=== PATIENT | female | born 1965 | race American Indian/Alaskan Native ===

== ENCOUNTER 2017-10-17 12:14 | Emergency (ER) | payer MEDICAID ==
[2017-10-17] MEDS ORDERED: NACL 0.9% 500 ML 500 ML IV ONE (12:38)
[2017-10-17] MEDS ORDERED: SUBLIMAZE IV ONE (13:09)
[2017-10-17] MEDS ORDERED: NACL 0.9% 1000 ML 1,000 ML IV ONE (13:09)
[2017-10-17] MEDS ORDERED: PEPCID IV ONE (13:10)
--- NOTE | 2017-10-17 13:21 | Emergency Department Report ---
HPI - General Chief Complaint: Nausea/Vomiting/Diarrhea Time Seen by Provider: 10/17/17 13:02 - HPI HPI: Room 4 The patient is a 51-year-old female presenting with a chief complaint of nausea vomiting diarrhea. The patient states yesterday she began "not feeling good" and "got sick." The patient states her symptoms include whole body aching in addition to nausea vomiting and diarrhea. Patient denies dysuria but is uncertain if she's had hematuria. The patient states her son has been sick with similar symptoms 4 days ago. Patient does admit to subjective fever but denies any unexplained weight loss. The patient currently gives her pain score a score of 10/10 Location: Gastrointestinal system, see above Duration: Constant since yesterday Quality: Pain Severity: 10/10 Modifying factors: [see above] Context: [see above] Mode of transportation: [not driving] ED Past Medical Hx - Past Medical History Previous Medical History?: Yes Hx Hypertension: Yes Hx GERD: Yes Hx Arthritis: Yes (legs, feet, hands) Hx Psychiatric Treatment: Yes (bipolar disorder with psychotic features) - Surgical History Past Surgical History?: Yes Additional Surgical History: January 2017 left ankle - Family History Family history: no significant - Social History Smoking Status: Never Smoker Substance Use Type: None (denies illicit drug use) - Medications Home Medications: Home Medications Medication Instructions Recorded Confirmed Last Taken Type Ciprofloxacin HCl [Ciprofloxacin 500 mg PO BID #14 tablet 10/17/17 Unknown Rx TAB] Diphenoxylate HCl/Atropine 2 each PO QID PRN #20 tablet 10/17/17 Unknown Rx [Lomotil 2.5-0.025 mg Tablet] HYDROcodone/APAP 5-325 [Henning 1 - 2 each PO Q6HR PRN #14 tablet 10/17/17 Unknown Rx 5/325] Promethazine [Phenergan TAB] 25 mg PO Q6HR PRN #20 tab 10/17/17 Unknown Rx metroNIDAZOLE [Flagyl] 500 mg PO Q8HR #21 tablet 10/17/17 Unknown Rx ED Review of Systems ROS: Stated complaint: WEAK, VOMITING AND DIARRHEA, NOT FEELING WELL Other details as noted in HPI Constitutional: fever (subjective) Endocrine: denies: unexplained weight loss Gastrointestinal: abdominal pain, nausea, vomiting, diarrhea Genitourinary: denies: dysuria Musculoskeletal: myalgia Neurological: headache Physical Exam - Physical Exam Vital Signs: Vital Signs 10/17/17 12:33 Temperature 98.9 F Pulse Rate 122 H Respiratory 24 Rate Blood Pressure 97/70 O2 Sat by Pulse 100 Oximetry Physical Exam: GENERAL: The patient is well-developed well-nourished female lying on stretcher moaning appearing to be in moderate discomfort. [] HEENT: Normocephalic. Atraumatic. Extraocular motions are intact. NECK: Supple. Trachea midline CHEST/LUNGS: Clear to auscultation. There is no respiratory distress noted. HEART/CARDIOVASCULAR: Regular. There is tachycardia. There is no gallop rub or murmur. ABDOMEN: Abdomen is soft, with tenderness to palpation in the right upper quadrant, right lower quadrant and left lower quadrant. Patient has normal bowel sounds. There is no abdominal distention. SKIN: There is no rash. There is no edema. There is no diaphoresis. NEURO: The patient is awake, alert, and oriented. The patient is cooperative. The patient has normal speech MUSCULOSKELETAL: There is no evidence of acute injury. ED Course Vital Signs 10/17/17 12:33 Temperature 98.9 F Pulse Rate 122 H Respiratory 24 Rate Blood Pressure 97/70 O2 Sat by Pulse 100 Oximetry ED Medical Decision Making - Lab Data Result diagrams: 10/17/17 13:22 10/17/17 13:22 - Radiology Data Radiology results: report reviewed (CT abdomen and pelvis), image reviewed (CT abdomen and pelvis) FINAL REPORT PROCEDURE: CT ABDOMEN PELVIS W CON TECHNIQUE: Computerized axial tomography of the abdomen and pelvis was performed after the IV injection of iodinated nonionic contrast. HISTORY: diffuse abdominal pain, nausea vomiting diarrhea COMPARISON: No prior studies are available for comparison. FINDINGS: Lower Lung caicedo: Minimal dependent atelectasis. Lung bases otherwise are clear. Upper Abdomen: The liver, the gallbladder, the adrenal glands, the pancreas and the spleen are unremarkable. Kidneys, Ureters and Urinary bladder: No abnormalities are seen Retroperitoneum: Mild atherosclerotic changes visualized. No aneurysm is visualized. Nonspecific subcentimeter lymph nodes are seen in the retroperitoneum. No pathologically enlarged lymph nodes are identified. Bowel: The perales of the rectum, the sigmoid colon and portions of the descending colon appear mildly thickened. This also appears to involve the splenic flexure and distal transverse colon. The remainder of the colon is unremarkable. The appendix is not clearly visualized. There is no evidence of bowel obstruction ascites or free intraperitoneal gas. Reproductive organs: The uterus is unremarkable. Cystic changes seen in the left adnexa likely within the left ovary measuring 2.7 by 2.3 centimeters. The right adnexa is unremarkable. Other: No acute bony abnormalities are identified. IMPRESSION: Mild wall thickening seen in the rectum, sigmoid colon descending colon splenic flexure and distal transverse colon consistent with a nonspecific colitis. The remainder of the colon is unremarkable. Bowel loops otherwise are unremarkable. Nonspecific cystic change left adnexa. Consider follow-up pelvic ultrasound. Right adnexa and uterus are unremarkable. Transcribed By: DFDebbi Dictated By: MARY HOWARD MD Electronically Authenticated By: MARY HOWARD MD Signed Date/Time: 10/17/171128 DD/ 28 TD/TT: 10/17/171128 - Differential Diagnosis acute gastroenteritis, UTI, pyelonephritis Critical care attestation.: If time is entered above; I have spent that time in minutes in the direct care of this critically ill patient, excluding procedure time. ED Disposition Clinical Impression: Nausea vomiting and diarrhea, Acute abdominal pain, Hypokalemia, Acute colitis Disposition: - TO HOME OR SELFCARE Is pt being admited?: No Does the pt Need Aspirin: No Condition: Stable Instructions: Infectious Colitis (ED) Additional Instructions: Return to the emergency department immediately should you develop worsening symptoms, fever, inability to tolerate food or liquid or any other concerns. Prescriptions: Ciprofloxacin HCl [Ciprofloxacin TAB] 500 mg PO BID #14 tablet Diphenoxylate HCl/Atropine [Lomotil 2.5-0.025 mg Tablet] 2 each PO QID PRN #20 tablet PRN Reason: Diarrhea HYDROcodone/APAP 5-325 [Henning 5/325] 1 - 2 each PO Q6HR PRN #14 tablet PRN Reason: Pain metroNIDAZOLE [Flagyl] 500 mg PO Q8HR #21 tablet Promethazine [Phenergan TAB] 25 mg PO Q6HR PRN #20 tab PRN Reason: Nausea Referrals: PRIMARY CARE, [Primary Care Provider] - 3-5 Days NATHANIEL RINCON MD [Staff Physician] - 3-5 Days (Dr. Rincon is a preparer. Please follow him for further evaluation) Time of Disposition: 15:48 (d/c p meds/Kcl)
[2017-10-17 13:47] LABS: Basophils % (Auto) 0.3 % (0.0-1.8); Hematocrit 28.5 % (30.3-42.9); Hemoglobin 8.7 gm/dl (10.1-14.3); Mean Corpuscular HGB Conc 30 % (30-34); Mean Corpuscular Hemoglobin 18 pg (28-32); Mean Corpuscular Volume 60 fl (79-97); Platelet Count 226 K/mm3 (140-440); Red Blood Count 4.73 M/mm3 (3.65-5.03); Red Cell Distribution Width 19.9 % (13.2-15.2); White Blood Count 8.2 K/mm3 (4.5-11.0)
[2017-10-17 13:55] LABS: INR 1.08 (0.87-1.13)
[2017-10-17 14:04] LABS: Anion Gap 20 mmol/L; BUN/Creatinine Ratio 7; Blood Urea Nitrogen 5 mg/dL (7-17); Carbon Dioxide 24 mmol/L (22-30); Chloride 92.1 mmol/L (98-107); Sodium 133 mmol/L (137-145); Total Protein 7.1 g/dL (6.3-8.2)
[2017-10-17 14:12] LABS: Glucose 112 mg/dL (65-100)
[2017-10-17 14:29] LABS: Alanine Aminotransferase 10 units/L (7-56); Albumin 3.5 g/dL (3.9-5); Albumin/Globulin Ratio 0.9 %; Alkaline Phosphatase 86 units/L (35-129)
[2017-10-17 14:43] LABS: Potassium 2.8 mmol/L (3.6-5.0)
[2017-10-17] MEDS ORDERED: K-DUR PO ONE (14:44)
[2017-10-17] MEDS ORDERED: KCL 10MEQ/100ML 10 MEQ/100 ML BAG IV SCH (15:00)
[2017-10-17] MEDS ORDERED: KCL 20 MEQ in NACL 0.9% 250ML 250 ML IV ONE (15:30)
--- NOTE | 2017-10-17 15:31 | Cat Scan Report ---
FINAL REPORT PROCEDURE: CT ABDOMEN PELVIS W CON TECHNIQUE: Computerized axial tomography of the abdomen and pelvis was performed after the IV injection of iodinated nonionic contrast. HISTORY: diffuse abdominal pain, nausea vomiting diarrhea COMPARISON: No prior studies are available for comparison. FINDINGS: Lower Lung caicedo: Minimal dependent atelectasis. Lung bases otherwise are clear. Upper Abdomen: The liver, the gallbladder, the adrenal glands, the pancreas and the spleen are unremarkable. Kidneys, Ureters and Urinary bladder: No abnormalities are seen Retroperitoneum: Mild atherosclerotic changes visualized. No aneurysm is visualized. Nonspecific subcentimeter lymph nodes are seen in the retroperitoneum. No pathologically enlarged lymph nodes are identified. Bowel: The perales of the rectum, the sigmoid colon and portions of the descending colon appear mildly thickened. This also appears to involve the splenic flexure and distal transverse colon. The remainder of the colon is unremarkable. The appendix is not clearly visualized. There is no evidence of bowel obstruction ascites or free intraperitoneal gas. Reproductive organs: The uterus is unremarkable. Cystic changes seen in the left adnexa likely within the left ovary measuring 2.7 by 2.3 centimeters. The right adnexa is unremarkable. Other: No acute bony abnormalities are identified. IMPRESSION: Mild wall thickening seen in the rectum, sigmoid colon descending colon splenic flexure and distal transverse colon consistent with a nonspecific colitis. The remainder of the colon is unremarkable. Bowel loops otherwise are unremarkable. Nonspecific cystic change left adnexa. Consider follow-up pelvic ultrasound. Right adnexa and uterus are unremarkable.
[2017-10-17 17:50] VITALS: BP 108/63
== END 2017-10-17 18:33 | disposition home or self-care (01) ==
LOC: ED 12:14
DX: K52.9 Noninfective gastroenteritis and colitis, unspecified (principal); E87.6 Hypokalemia; R10.9 Unspecified abdominal pain; I10 Essential (primary) hypertension; M19.90 Unspecified osteoarthritis, unspecified site
CPT/HCPCS: 36415; 74177; 80053; 82140; 82805; 82962; 85025; 85610; 87040; 93005; 93010; 96361; 96365; 96366; 96375; 99284; J3010; J3480; J7030; J7040; J7050; Q9967

== ENCOUNTER 2019-01-14 08:08 | Observation (INO) | payer MEDICAID ==
[2019-01-07 10:02] LABS: Basophils % (Auto) 0.5 % (0.0-1.8); Eosinophils # (Auto) 0.3 K/mm3 (0.0-0.4); Hematocrit 31.4 % (30.3-42.9); Hemoglobin 9.6 gm/dl (10.1-14.3); Lymphocytes # (Auto) 1.6 K/mm3 (1.2-5.4); Lymphocytes % (Auto) 21.3 % (13.4-35.0); Mean Corpuscular HGB Conc 31 % (30-34); Monocytes # (Auto) 0.4 K/mm3 (0.0-0.8); Monocytes % (Auto) 5.1 % (0.0-7.3); Platelet Count 241 K/mm3 (140-440); Red Blood Count 4.59 M/mm3 (3.65-5.03); Red Cell Distribution Width 19.6 % (13.2-15.2)
[2019-01-07 10:09] LABS: Mean Corpuscular Volume 68 fl (79-97)
[2019-01-07 10:10] LABS: BUN/Creatinine Ratio 13; Blood Urea Nitrogen 8 mg/dL (7-17); Calcium 8.5 mg/dL (8.4-10.2); Hemolysis Index 8
[~2019-01-14 08:08] MED LIST: DECADRON ONE; DILAUDID ONE; DIPRIVAN 10 MG/ML IV ONE; MARCAINE 0.5% INFILTRATI ONE; XYLOCAINE 1% 20 mL ONE; XYLOCAINE MPF 2% ONE; ZEMURON IV ONE; ZOFRAN ONE
[2019-01-14] MEDS ORDERED: LACTATED RINGERS 1,000 ML IV SCH (08:27)
[2019-01-14] MEDS ORDERED: DILAUDID IV PRN ×2 (08:36→19:43)
[2019-01-14] MEDS ORDERED: ZOFRAN IV PRN (08:36)
[2019-01-14] MEDS ORDERED: SUBLIMAZE IV PRN (08:36)
[2019-01-14] MEDS ORDERED: NEOSPORIN GU IR ONE ×2 (08:55→11:29)
[2019-01-14] MEDS ORDERED: NEURONTIN PO NR (09:00)
[2019-01-14] MEDS ORDERED: VERSED IV NR (09:00)
--- NOTE | 2019-01-14 09:07 | History and Physical Report ---
History of Present Illness Date of examination: 01/14/19 Chief complaint: Symptomatic uterine fibroids History of present illness: Pt is a 53yo BF LMP 09/02/18 presents for surgical evaluation and treatment of uterine fibroids. She complains of prolonged heavy vaginal bleeding and pelvic u/s showed an enlarged uterus 10.0 x 6.3 x 6.5cm with a 3.3 x 3.0 x 2.8cm posterior fibroid. Endometrial biopsy showed a benign polyp. She is now scheduled for a Robotic Assisted Total Hysterectomy with Bilateral SalpingoOophorectomy Past History Past Medical History: hypertension, hepatitis, GERD Past Surgical History: other (Left ankle) [employer] History: fibroids, hepatitis C Family/Genetic History: cancer (brain) Social history: no significant social history, single Medications and Allergies Allergies Allergy/AdvReac Type Severity Reaction Status Date / Time morphine Allergy Rash Verified 01/06/19 14:14 sulfamethoxazole Allergy whelps Verified 01/06/19 14:14 [From Bactrim] trimethoprim [From Bactrim] Allergy whelps Verified 01/06/19 14:14 Home Medications Medication Instructions Recorded Confirmed Last Taken Type Duloxetine HCl [Cymbalta] 60 mg PO DAILY 01/06/19 01/14/19 01/14/19 05:00 History Pantoprazole Sodium 40 mg PO QAM 01/06/19 01/14/19 01/14/19 05:00 History Prazosin [Minipress] 1 mg PO DAILY 01/06/19 01/14/19 01/13/19 09:00 History hydrOXYzine pamoate [hydrOXYzine 100 mg PO DAILY 01/06/19 01/14/19 01/13/19 09:00 History Pamoate] hydroCHLOROthiazide [Hctz] 12.5 mg PO QDAY 01/06/19 01/14/19 01/13/19 09:00 History Active Meds: Active Medications Celecoxib (Celebrex) 200 mg PO PREOP NR Stop: 01/14/19 16:00 Fentanyl (Sublimaze) 50 mcg IV Q5MIN PRN PRN Reason: Pain , Severe (7-10) Stop: 01/14/19 20:00 Gabapentin (Neurontin) 300 mg PO PREOP NR Stop: 01/14/19 16:00 Hydromorphone HCl (Dilaudid) 0.5 mg IV Q10MIN PRN PRN Reason: Pain , Severe (7-10) Stop: 01/14/19 20:00 Lactated Ringer's (Lactated Ringers) 1,000 mls @ 75 mls/hr IV DIRECT DANYELLE Stop: 01/14/19 23:59 Cefazolin Sodium (Ancef/Sterile Water 2 Gm/20 Ml) 2 gm in 20 mls @ 80 mls/hr IV PREOP DANYELLE; Protocol Midazolam HCl (Versed) 2 mg IV PREOP NR Stop: 01/14/19 23:59 Ondansetron HCl (Zofran) 4 mg IV ONCE PRN PRN Reason: Nausea And Vomiting Stop: 01/14/19 16:00 Review of Systems All systems: negative - Vital Signs Vital signs: Vital Signs Temp Pulse Resp BP Pulse Ox 97.2 F L 70 100 01/07/19 09:24 01/07/19 09:24 01/07/19 09:24 01/07/19 09:24 01/07/19 09:24 Temp Pulse Resp BP Pulse Ox 97.2 F L 100 01/07/19 09:24 01/07/19 09:24 01/07/19 09:24 01/07/19 09:24 01/07/19 09:24 - Physical Exam Breasts: Positive: deferred Cardiovascular: Regular rate Lungs: Positive: Clear to auscultation Abdomen: Positive: normal appearance, soft Genitourinary (Female): Positive: normal external genitalia Uterus: Positive: enlarged Extremities: Positive: normal Results Result Diagrams: 01/07/19 09:52 01/07/19 09:52 All other labs normal. Ultrasound: report reviewed Assessment and Plan - Patient Problems (1) Uterine fibroid Onset Date: 01/14/19 Current Visit: Yes Status: Acute Qualifiers: Uterine leiomyoma location: intramural and submucous Qualified Code(s): D25.1 - Intramural leiomyoma of uterus; D25.0 - Submucous leiomyoma of uterus Plan to address problem: A: Symptomatic uterine fibroids Menorrhagia P: Admit for a Robotic Assisted Total Hysterectomy with Bilateral Salpi ngoOophorectomy (2) Menorrhagia, premenopausal Onset Date: 01/14/19 Current Visit: Yes Status: Acute
[2019-01-14] MEDS ORDERED: ANCEF/STERILE WATER 2 GM/20 ML 2 GM/20 ML SYRINGE IV SCH (10:00)
[2019-01-14] MEDS ORDERED: NACL 0.9% IR ONE (11:29)
[2019-01-14] MEDS ORDERED: BLOXIVERZ ONE (12:14)
[2019-01-14] MEDS ORDERED: ROBINUL ONE (12:14)
--- NOTE | 2019-01-14 12:24 | Operative Report ---
Operative Report Operative Report: Date of procedure: 01/14/2019 Pre-operative diagnosis: 1. Symptomatic uterine fibroids 2. Menorrhagia Post-operative diagnosis: Same Procedure name(s): 1. Robotic-Assisted Total Hysterectomy 2. Bilateral salpingo-oophorectomy Surgeon: Chace Rincon MD Security Operations Analyst: Donna Rhodes CSA Anesthesia: GERALD Block followed by general endotracheal intubation EBL: 100 mL Findings: A 12 week size multi-myomatous uterus with fallopian tubes showing evidence of previous tubal ligation bilaterally and normal ovaries bilaterally. Procedure: After the patient's first correctly identified she was prepped and draped in the usual sterile fashion and placed in the dorsolithotomy position. The bladder was first catheterized using Bateman catheter and the speculum was placed in the vagina and the anterior lip of the cervix was grasped using a single-tooth tenaculum, and the medium Vesicare cup was placed. The tenaculum and speculum was then removed from the vagina and attention was then turned to the abdomen. The skin knife was used to make a small incision approximately 5 cm above the umbilicus through which a 12 mm trocar was placed under direct visualization. After adequate amount of abdominal insufflation visualization of the pelvic organs found the uterus to be enlarged and the tubes and ovaries were found to be normal bilaterally. A right and left paramedian incision was made through which the 8 mm trochars were placed under direct visualization and a 5 mm trocar was placed in the right upper quadrant. The patient was then placed in steep Trendelenburg positioning and the robot was docked on the patient's left side. After all the robotic ports were connected and adequate functioning of the robotic arms were tested the surgeon then proceeded to the console to begin the hysterectomy. First the left round ligament was grasped, cauterized and cut, the left infundibulopelvic ligament was grasped, cauterized and cut, and the left fallopian tube also grasped, cauterized and cut along the mesosalpinx, thus freeing the left ovary from the left pelvic sidewall. The same procedure was performed on the right. The right round ligament was grasped, cauterized and cut, the right infundibulopelvic ligament wase grasped, cauterized and cut, and the right fallopian tube also grasped, cauterized and cut along the mesosalpinx, thus freeing the right ovary from the right pelvic sidewall. The bladder flap was taken down anteriorly and the uterine vessels were grasped, cauterized and cut bilaterally. The cardinal ligaments were sequentially grasped, cauterized and cut down to the level of the uterosacral ligaments. At this time the posterior colpotomy was performed over the Vcare cup, and the cervix was circumscribed beginning posteriorly and meeting anteriorly until the cervix was freed. The cervix and uterus was then removed through the vagina and sent to pathology. The vaginal cuff was then closed using 2-0 Vloc suture in a running fashion. Irrigation was then performed and after good hemostasis was achieved the procedure was considered complete. The Tisseel sealant was then sprayed across the vaginal cuff site, and after excellent hemostasis was assured Interceed was placed across the vaginal cuff site. All instruments were then removed from the abdominal cavity. And each incision was closed using 0 Vicryl suture in a [id number] configuration on the fascia followed by 4-0 Monocryl suture in a sub-cuticular fashion on the skin. Each incision was also infiltrated using 0.5% Marcaine solution. The vaginal pack was removed. The patient tolerated the procedure well and was transported to the recovery room in stable condition.
[2019-01-14] MEDS ORDERED: NORCO 5/325 PO PRN (12:25)
[2019-01-14] MEDS ORDERED: PERCOCET 5/325 PO PRN (12:25)
[2019-01-14] MEDS ORDERED: MILK OF MAGNESIA PO PRN (12:25)
[2019-01-14] MEDS ORDERED: TYLENOL PO PRN (12:25)
[2019-01-14] MEDS ORDERED: NARCAN 0.4 MG/1 ML IV PRN (12:25)
[2019-01-14] MEDS ORDERED: LACTATED RINGERS 1,000 ML ONE (12:40)
[2019-01-14] MEDS ORDERED: DILAUDID ONE (12:49)
[2019-01-14] MEDS ORDERED: D5LR 1,000 ML IV SCH (13:00)
[2019-01-14] MEDS ORDERED: CLIMARA TD SCH (13:00)
--- NOTE | 2019-01-14 14:43 | Post Anesthesia Evaluation ---
- Post Anesthesia Evaluation Patient Participated: Yes Airway Patent: Yes Stable Respiratory Function: Yes Nausea/Vomiting: No Temp > 96.8F: Yes Pain Manageable: Yes Adequeate Hydration: Yes Anesthesia Complications: No
--- NOTE | 2019-01-14 14:43 | Anesthesia Consultation ---
Anesthesia Consult and Med Hx Date of service: 01/14/19 - Airway Anesthetic Teeth Evaluation: Good ROM Head & Neck: Adequate Mental/Hyoid Distance: Adequate Mallampati Class: Class III Intubation Access Assessment: Possibly Difficult - Pulmonary Exam CTA: Yes - Cardiac Exam Cardiac Exam: RRR - Pre-Operative Health Status ASA Pre-Surgery Classification: ASA3 Proposed Anesthetic Plan: General - Pulmonary SOB: No - Cardiovascular System Hx Hypertension: Yes Hx Heart Attack/AMI: No - Central Nervous System CVA: No Hx Psychiatric Problems: Yes - Gastrointestinal Hx Gastroesophageal Reflux Disease: Yes - Endocrine Hx Renal Disease: No Hx Liver Disease: Yes (Hx HCV) Hx Insulin Dependent Diabetes: No Hx Non-Insulin Dependent Diabetes: No - Other Systems Hx Obesity: Yes
--- NOTE | 2019-01-14 14:43 | Anesthesia Day of Surgery ---
Anesthesia Day of Surgery - Day of Surgery Patient Examined: Yes Patient H&P Reviewed: Yes Patient is NPO: Yes
[2019-01-14] MEDS: TORADOL IV SCH ×2 (17:23→23:31)
[2019-01-14] MEDS: ANCEF/NS 1 GM/50 ML 1 GM/50 ML BAG IV SCH (17:24)
[2019-01-14] MEDS ORDERED: COLACE PO SCH (22:00)
[2019-01-15] MEDS: ANCEF/NS 1 GM/50 ML 1 GM/50 ML BAG IV SCH (01:30)
[2019-01-15 06:26] LABS: Hematocrit 29.3 % (30.3-42.9); Hemoglobin 8.9 gm/dl (10.1-14.3)
--- NOTE | 2019-01-15 10:00 | Progress Note ---
Assessment and Plan - Patient Problems (1) Uterine fibroid Onset Date: 01/14/19 Current Visit: Yes Status: Resolved Qualifiers: Uterine leiomyoma location: intramural and submucous Qualified Code(s): D25.1 - Intramural leiomyoma of uterus; D25.0 - Submucous leiomyoma of uterus (2) Menorrhagia, premenopausal Onset Date: 01/14/19 Current Visit: Yes Status: Resolved (3) S/P robot-assisted surgical procedure Onset Date: 01/15/19 Current Visit: Yes Status: Resolved Plan to address problem: A: S/P RATH with BSO - POD #1 Doing well Asymptomatic anemia - stable P: May go home today. Subjective - Subjective Date of service: 01/15/19 Principal diagnosis: s/p RATH - POD#1 Interval history: Pt is s/p a Robotic Assisted Total Hysterectomy with Bilateral SalpingoOophorectomy, and feeling well. She is tolerating a reg diet without nausea or vomiting, ambulating and voiding without difficulty. Patient reports: appetite normal, voiding normally, pain well controlled, flatus, ambulating normally, no dizzy ambulation, no nauseated Objective - Vital Signs Latest vital signs: Vital Signs Temp Pulse Resp BP BP BP Pulse Ox 01/15/19 07:44 98.5 F 83 20 112/57 96 01/15/19 04:33 16 01/15/19 04:03 20 01/15/19 00:41 96 H 95 01/14/19 23:31 18 01/14/19 20:21 18 01/14/19 19:55 100 H 18 147/95 97 01/14/19 19:51 20 01/14/19 16:32 97.3 F L 92 H 24 142/95 99 01/14/19 13:55 86 138/87 138/87 99 01/14/19 13:30 97.5 F L 87 14 135/89 98 01/14/19 13:20 14 01/14/19 13:15 89 16 141/90 98 01/14/19 13:00 92 H 17 148/92 100 01/14/19 12:50 17 01/14/19 12:45 92 H 20 147/90 100 01/14/19 12:40 96 H 17 142/90 100 01/14/19 12:35 97.4 F L 95 H 14 142/90 100 01/14/19 10:30 16 Intake and Output 01/14/19 01/15/19 01/15/19 22:59 06:59 14:59 Intake Total 50 Output Total 800 900 Balance -750 -900 Intake: IV 50 ANCEF/NS 1 GM/50 ML 1 gm 50 In 50 ml @ 100 mls/hr IV Q8H [facility] Rx#:[id number] Output: Urine 800 900 Void 800 900 Other: Total, Output Amount 800 900 - Exam Abdomen: Present: normal appearance, soft Extremities: Present: normal Incision: Present: normal, dry, intact - Labs Labs: Abnormal lab results 01/15/19 Range/Units 05:56 Hgb 8.9 L (10.1-14.3) gm/dl Hct 29.3 L (30.3-42.9) % Laboratory Tests 01/07/19 01/07/19 01/14/19 09:52 09:52 09:00 WBC 7.4 RBC 4.59 Hgb 9.6 L Hct 31.4 MCV 68 L MCH 21 L MCHC 31 RDW 19.6 H Plt Count 241 Lymph % (Auto) 21.3 [place] % (Auto) 5.1 Eos % (Auto) 4.0 Baso % (Auto) 0.5 Lymph # 1.6 [place] # 0.4 Eos # 0.3 Baso # 0.0 Seg Neutrophils % 69.1 Seg Neutrophils # 5.1 Sodium 142 Potassium 4.3 Chloride 101.6 Carbon Dioxide 29 Anion Gap 16 BUN 8 Creatinine 0.6 L Estimated GFR > 60 BUN/Creatinine Ratio 13 Glucose 120 H Calcium 8.5 Blood Type B POSITIVE Antibody Screen Negative 01/15/19 05:56 WBC RBC Hgb 8.9 L Hct 29.3 L MCV MCH MCHC RDW Plt Count Lymph % (Auto) [place] % (Auto) Eos % (Auto) Baso % (Auto) Lymph # [place] # Eos # Baso # Seg Neutrophils % Seg Neutrophils # Sodium Potassium Chloride Carbon Dioxide Anion Gap BUN Creatinine Estimated GFR BUN/Creatinine Ratio Glucose Calcium Blood Type Antibody Screen
--- NOTE | 2019-01-15 10:36 | Discharge Summary ---
Providers - Providers Date of Admission: 01/14/19 12:25 Date of discharge: 01/15/19 Attending physician: ALISA DANG Hospitalization Reason for admission: other (Symptomatic uterine fibroids; Menorrhagia) Procedure: other (Robotic Assisted Total Hysterectomy with Bilateral SalpingoOophorectomy) Laceration: none Incision: normal, dry, intact Other procedures: none complications: none Discharge diagnosis: other (s/p RATH with BSO) Hospital course: Pt is a 53yo BF LMP 09/02/18 who presented for surgical evaluation and treatment of uterine fibroids. She complained of prolonged heavy vaginal bleeding and pelvic u/s showed an enlarged uterus 10.0 x 6.3 x 6.5cm with a 3.3 x 3.0 x 2.8cm posterior fibroid. Endometrial biopsy showed a benign polyp. She underwent an uncomplicated Robotic Assisted Total Hysterectomy with Bilateral SalpingoOophorectomy, and tolerated the procedure well. By POD #1 she was tolerating a reg diet without nausea or vomiting, ambulating and voiding without difficulty. She was therefore discharged to home on POD #1 in stable condition. Condition at discharge: Good Disposition: DC-01 TO HOME OR SELFCARE - Discharge Diagnoses (1) Uterine fibroid Status: Resolved Qualifiers: Uterine leiomyoma location: intramural and submucous Qualified Code(s): D25.1 - Intramural leiomyoma of uterus; D25.0 - Submucous leiomyoma of uterus (2) Menorrhagia, premenopausal Status: Resolved (3) S/P robot-assisted surgical procedure Status: Resolved Plan - Discharge Medications Prescriptions: Estradiol [Climara] 0.1 mg TD TuSa #4 patch HYDROcodone/APAP 5-325 [[place] 5-325 mg TAB] 1 each PO Q6HR PRN #30 tablet PRN Reason: Pain, Moderate (4-6) Ibuprofen [Motrin] 800 mg PO Q8HR PRN #30 tablet PRN Reason: Pain, Mild (1-3) - Provider Discharge Summary Activity: routine, no sex for 6 weeks, no heavy lifting 4 weeks, no strenuous exercise Diet: routine Instructions: routine Additional instructions: [] Smoking cessation referral if applicable(refer to patient education folder for contact #) [] Refer to [facility] Booklet Call your doctor immediately for: * Fever > 100.5 * Heavy vaginal bleeding ( >1 pad per hour) * Severe persistent headache * Shortness of breath * Reddened, hot, painful area to leg or breast * Drainage or odor from incision. * Keep incision clean and dry at all times and follow doctor's instructions rega rding bathing/showering - Follow up plan Follow up: ZANE GOETZ [Other] - 7 Days ALISA DANG MD [Staff Physician] - 14 Days
[2019-01-15 15:12] VITALS: BP 106/67
== END 2019-01-15 15:00 | disposition home or self-care (01) ==
LOC: OR 08:08 → OB 12:25
PROVIDERS: ADMIT Obstetrics & Gynecology; ATTEND Obstetrics & Gynecology
DX: D25.9 Leiomyoma of uterus, unspecified (principal); N92.0 Excessive and frequent menstruation with regular cycle
CPT/HCPCS: 36415; 58552; 64450; 80048; 81025; 85014; 85018; 85025; 86850; 86900; 86901; 88307; 96365; 96366; 96375; 96376; A4217; C1765; C9250; G0378; J0690; J1100; J1170; J1885; J2250; J2405; J2704; J2710; J3010; J7120; J7121; S2900

== ENCOUNTER 2020-10-29 15:51 | Emergency (ER) | payer MEDICAID ==
--- NOTE | 2020-10-29 17:06 | Event Note ---
ED Screening Note Date of service: 10/29/20 Time: 17:04 ED Screening Note: 54-year-old -[place] female presents to the emergency room complaining of right lower back pain that radiates down her right leg. Patient denies any injury. She states that she has tried taking her gabapentin, Aleve and oxycodone without much relief. This initial assessment/diagnostic orders/clinical plan/treatment(s) is/are subject to change based on patients health status, clinical progression and re-assessment by fellow clinical providers in the ED. Further treatment and workup at subsequent clinical providers discretion. Patient/guardian urged not to elope from the ED as their condition may be serious if not clinically assessed and managed. Initial orders include:
[2020-10-29] MEDS ORDERED: ONDANSETRON 4 MG ODT TAB PO ONE (21:27)
[2020-10-29] MEDS ORDERED: dexAMETHasone 20 MG/5 ML VIAL IM ONE (21:27)
[2020-10-29] MEDS ORDERED: oxyCODONE /ACETAMINOPHEN 5-325MG TAB PO ONE (21:27)
[2020-10-29] MEDS ORDERED: KETOROLAC 60 MG/2 ML INJ IM ONE (21:27)
--- NOTE | 2020-10-29 21:34 | Emergency Department Report ---
ED Extremity Problem HPI - General Chief complaint: Extremity Problem,Nontraumatic Stated complaint: LT SIDE PAIN Source: patient Mode of arrival: Wheelchair Limitations: No Limitations - History of Present Illness Initial comments: Patient is a 54-year-old -Citizen Of [place] female with a history of bipolar disorder with psychotic features, hypertension, chronic osteoarthritis, GERD, chronic back pain and chronic hepatitis C in remission who presents to the ED with complaint of acute exacerbation of her chronic low back pain that radiates to the right hip and right leg for the last 2 days. Patient states that despite taking the pain medication that she has at home including gabapentin and diclofenac, the pain has been persistent and worse especially in the last 2 days. Patient denies fall, traumatic injury, heavy lifting, nausea and vomiting, dysuria, urinary frequency and urgency, dizziness, syncope, chest pain or shortness of breath or change in vision. MD Complaint: extremity pain (right hip pain radiating to the right leg), other (lower back pain that radiates to the right hip and leg) -: Sudden, days(s) (2) Location: right, lower extremity (right hip and leg), other (lower back) History of Same: Yes (chronic osteoarthritis) -: Yes arthralgia (right hip pain and leg pain) Radiation: distal Severity scale (0 -10): 8 Quality: aching, sharp Consistency: constant Improves with: nothing Worsens with: weight bearing, walking, exertion, palpation Associated Symptoms: denies other symptoms, arthralgias (Right hip and lower back). denies: chest pain, shortness of breath, fever, myalgias, rash - Related Data Home Medications Medication Instructions Recorded Confirmed Last Taken Duloxetine HCl [Cymbalta] 60 mg PO DAILY 01/06/19 01/14/19 01/14/19 05:00 Pantoprazole Sodium 40 mg PO QAM 01/06/19 01/14/19 01/14/19 05:00 Prazosin [Minipress] 1 mg PO DAILY 01/06/19 01/14/19 01/13/19 09:00 hydrOXYzine pamoate [hydrOXYzine 100 mg PO DAILY 01/06/19 01/14/19 01/13/19 09:00 Pamoate] hydroCHLOROthiazide [Hctz] 12.5 mg PO QDAY 01/06/19 01/14/19 01/13/19 09:00 Previous Rx's Medication Instructions Recorded Last Taken Type HYDROcodone/APAP 5-325 [[place] 1 each PO Q6HR PRN #30 tablet 01/15/19 Unknown Rx 5-325 mg TAB] Ibuprofen [Motrin] 800 mg PO Q8HR PRN #30 tablet 01/15/19 Unknown Rx estradioL [Climara 0.1mg/24hr] 0.1 mg TD TuSa #4 patch 01/15/19 Unknown Rx cephALEXin [Keflex] 500 mg PO Q8HR #30 cap 10/29/20 Unknown Rx methOCARBAMOL [Robaxin TAB] 750 mg PO Q8H PRN #30 tablet 10/29/20 Unknown Rx predniSONE [Deltasone] 60 mg PO QDAY #18 tab 10/29/20 Unknown Rx traMADoL [Ultram] 50 mg PO Q6HR PRN #12 tablet 10/29/20 Unknown Rx Allergies Allergy/AdvReac Type Severity Reaction Status Date / Time morphine Allergy Rash Verified 01/06/19 14:14 sulfamethoxazole Allergy whelps Verified 01/06/19 14:14 [From Bactrim] trimethoprim [From Bactrim] Allergy whelps Verified 01/06/19 14:14 ED Review of Systems ROS: Stated complaint: LT SIDE PAIN Other details as noted in HPI Constitutional: denies: chills, fever Eyes: denies: eye pain, eye discharge, vision change ENT: denies: ear pain, throat pain Respiratory: denies: cough, shortness of breath, wheezing Cardiovascular: denies: chest pain, palpitations Endocrine: no symptoms reported Gastrointestinal: denies: abdominal pain, nausea, diarrhea Genitourinary: denies: urgency, dysuria, discharge Musculoskeletal: back pain (lower back pain), arthralgia (right hip pain ), other (diffuse right leg pain). denies: joint swelling Skin: denies: rash, lesions Neurological: denies: headache, weakness, paresthesias Psychiatric: denies: anxiety, depression Hematological/Lymphatic: denies: easy bleeding, easy bruising ED Past Medical Hx - Past Medical History Previous Medical History?: Yes Hx Hypertension: Yes Hx Heart Attack/AMI: No Hx Congestive Heart Failure: No Hx Diabetes: No Hx GERD: Yes Hx Liver Disease: Yes (Hx HCV) Hx Renal Disease: No Hx Arthritis: Yes (KNEES) Hx Psychiatric Treatment: Yes (bipolar disorder with psychotic features) Hx Asthma: No Hx COPD: No - Surgical History Past Surgical History?: Yes Additional Surgical History: January 2017 left ankle - Social History Smoking Status: Never Smoker - Medications Home Medications: Home Medications Medication Instructions Recorded Confirmed Last Taken Type Duloxetine HCl [Cymbalta] 60 mg PO DAILY 01/06/19 01/14/19 01/14/19 05:00 History Pantoprazole Sodium 40 mg PO QAM 01/06/19 01/14/19 01/14/19 05:00 History Prazosin [Minipress] 1 mg PO DAILY 01/06/19 01/14/19 01/13/19 09:00 History hydrOXYzine pamoate [hydrOXYzine 100 mg PO DAILY 01/06/19 01/14/19 01/13/19 09:00 History Pamoate] hydroCHLOROthiazide [Hctz] 12.5 mg PO QDAY 01/06/19 01/14/19 01/13/19 09:00 History HYDROcodone/APAP 5-325 [[place] 1 each PO Q6HR PRN #30 tablet 01/15/19 Unknown Rx 5-325 mg TAB] Ibuprofen [Motrin] 800 mg PO Q8HR PRN #30 tablet 01/15/19 Unknown Rx estradioL [Climara 0.1mg/24hr] 0.1 mg TD TuSa #4 patch 01/15/19 Unknown Rx cephALEXin [Keflex] 500 mg PO Q8HR #30 cap 10/29/20 Unknown Rx methOCARBAMOL [Robaxin TAB] 750 mg PO Q8H PRN #30 tablet 10/29/20 Unknown Rx predniSONE [Deltasone] 60 mg PO QDAY #18 tab 10/29/20 Unknown Rx traMADoL [Ultram] 50 mg PO Q6HR PRN #12 tablet 10/29/20 Unknown Rx ED Physical Exam - General Limitations: No Limitations General appearance: alert, in no apparent distress - Head Head exam: Present: atraumatic, normocephalic, normal inspection - Eye Eye exam: Present: normal appearance, PERRL, EOMI Pupils: Present: normal accommodation - ENT ENT exam: Present: normal exam, normal orophraynx, mucous membranes moist, TM's normal bilaterally, normal external ear exam - Neck Neck exam: Present: normal inspection, full ROM - Respiratory Respiratory exam: Present: normal lung sounds bilaterally. Absent: respiratory distress, wheezes, rales, rhonchi, chest wall tenderness, accessory muscle use, decreased breath sounds, prolonged expiratory - Cardiovascular Cardiovascular Exam: Present: regular rate, normal rhythm, normal heart sounds. Absent: systolic murmur, diastolic murmur, rubs, gallop - GI/Abdominal GI/Abdominal exam: Present: soft, normal bowel sounds. Absent: tenderness, guarding, rebound, hyperactive bowel sounds, hypoactive bowel sounds, organomegaly - Extremities Exam Extremities exam: Present: normal inspection, full ROM, tenderness (Palpable right hip and knee tenderness), normal capillary refill. Absent: pedal edema, joint swelling, calf tenderness - Back Exam Back exam: Present: normal inspection, full ROM, tenderness (Palpable lumbosacral paraspinal musculoskeletal tenderness), muscle spasm, paraspinal tenderness. Absent: CVA tenderness (R), CVA tenderness (L), vertebral tenderness - Neurological Exam Neurological exam: Present: alert, oriented X3, CN II-XII intact, normal gait, reflexes normal - Psychiatric Psychiatric exam: Present: normal affect, normal mood - Skin Skin exam: Present: warm, dry, intact, normal color. Absent: rash ED Course Vital Signs 10/29/20 16:46 Temperature 97.9 F Pulse Rate 86 Respiratory 16 Rate Blood Pressure 115/69 [Right] O2 Sat by Pulse 98 Oximetry ED Medical Decision Making - Medical Decision Making This is a 54-year-old -Citizen Of [place] female with a history of bipolar disorder with psychotic features, hypertension, chronic osteoarthritis, GERD, chronic back pain and chronic hepatitis C in remission who presents to the ED with complaint of acute exacerbation of her chronic low back pain that radiates to the right hip and right leg for the last 2 days. Patient states that despite taking the pain medication that she has at home including gabapentin and diclofenac, the pain has been persistent and worse especially in the last 2 days. In the ED, patient is alert and oriented x3 and is not in distress. Patient was treated for pain in the ED and urinalysis shows a mild urinary tract infection. On reevaluation, patient's pain is well controlled medications. Patient was ambulatory in the ED with no difficulties after treatment. Patient will discharge home on pain medications, muscle relaxants and oral steroid and advised to follow-up with her primary care physician in 5 to 7 days for reevaluation or return to the ED immediately if symptoms get worse. - Differential Diagnosis Chronic osteoarthritis; Sciatica; Chronic back pain; Muscle spasm Critical care attestation.: If time is entered above; I have spent that time in minutes in the direct care of this critically ill patient, excluding procedure time. ED Disposition Clinical Impression: Spasm of muscle of lower back, Chronic osteoarthritis, Acute urinary tract infection Chronic low back pain with right-sided sciatica Qualifiers: Back pain laterality: right Qualified Code(s): M54.41 - Lumbago with sciatica, right side Disposition: - TO HOME OR SELFCARE Is pt being admited?: No Does the pt Need Aspirin: No Condition: Stable Instructions: Muscle Cramps and Spasms, [id number], Arthritis, [id number], Sciatica, [id number], Urinary Tract Infection, Adult, [id number], Chronic Back Pain, [id number] Additional Instructions: Your symptoms are likely due to chronic osteoarthritis and sciatica as well as muscle spasm. Therefore take medications with food, drink plenty of fluids and follow-up with your primary care physician in 7 to 10 days for reevaluation. Return to the ED immediately if symptoms get worse. Prescriptions: predniSONE [Deltasone] 60 mg PO QDAY #18 tab cephALEXin [Keflex] 500 mg PO Q8HR #30 cap methOCARBAMOL [Robaxin TAB] 750 mg PO Q8H PRN #30 tablet PRN Reason: Muscle Spasm traMADoL [Ultram] 50 mg PO Q6HR PRN #12 tablet PRN Reason: Pain Referrals: [facility] [Provider Group] - 7-10 days Time of Disposition: 21:36 Print Language: [id number]
[2020-10-29 22:54] LABS: Bilirubin,Urine NEG (Negative); Blood,Urine NEG (Negative); Color,Urine Yellow (Yellow); Mucus,Urine FEW /HPF; Protein,Urine <15 mg/dL mg/dL (Negative)
[2020-10-29 23:40] VITALS: BP 117/78
== END 2020-10-29 23:48 | disposition home or self-care (01) ==
LOC: ED 15:51
DX: M54.41 Lumbago with sciatica, right side (principal); N39.0 Urinary tract infection, site not specified; M62.830 Muscle spasm of back; I10 Essential (primary) hypertension; K21.9 Gastro-esophageal reflux disease without esophagitis; M19.91 Primary osteoarthritis, unspecified site; Z98.890 Other specified postprocedural states; Z79.1 Long term (current) use of non-steroidal anti-inflammatories (NSAID); Z79.899 Other long term (current) drug therapy; Z88.8 Allergy status to other drugs, medicaments and biological substances
CPT/HCPCS: 81001; 87086; 96372; 99283; J1100; J1885; Q0162